=== PATIENT | male | born 1975 | race American Indian/Alaskan Native ===

== ENCOUNTER 2017-09-21 13:35 | Emergency (ER) | payer SELFPAY ==
[2017-09-21] MEDS ORDERED: NACL 0.9% 1000 ML 1,000 ML IV ONE (15:00)
[2017-09-21] MEDS ORDERED: ZOFRAN IV ONE (15:00)
--- NOTE | 2017-09-21 15:01 | Emergency Department Report ---
ED Abdominal Pain HPI - General Chief Complaint: Abdominal Pain Stated Complaint: NAUSEA/VOMITING Time Seen by Provider: 09/21/17 14:40 Source: patient, EMS Mode of arrival: Stretcher Limitations: No Limitations - History of Present Illness Initial Comments: Patient is a 42-year-old male presents to emergency room with complaints of nausea and vomiting and abdominal pain 10 hours. Patient states the abdominal pain and nausea vomiting started early this morning after having a drink a bottle of wine. Patient states that he doesn't drink that often. Patient states the pain is bilateral lower quadrant and epigastric. MD Complaint: abdominal pain -: Sudden Location: LLQ, RLQ Radiation: none Migration to: no migration Severity scale (0 -10): 8 Quality: stabbing Consistency: constant Improves With: rest Worsens With: eating, vomiting Context: other (recent alcohol use) Associated Symptoms: nausea, vomiting. denies: diarrhea, fever, chills, constipation, dysuria, hematemesis, hematochezia, melena, hematuria, syncope - Related Data Home Medications Medication Instructions Recorded Confirmed Last Taken Hydrochlorothiazide [HCTZ] 25 mg PO QDAY 02/25/15 02/25/15 02/25/15 Insulin NPH, Human [NovoLIN N] 15 unit SUB-Q BID 02/25/15 02/25/15 02/25/15 Allergies Allergy/AdvReac Type Severity Reaction Status Date / Time No Known Allergies Allergy Unverified 02/25/15 18:45 ED Review of Systems ROS: Stated complaint: NAUSEA/VOMITING Other details as noted in HPI Constitutional: denies: chills, fever Eyes: denies: eye pain, eye discharge, vision change ENT: denies: ear pain, throat pain Respiratory: denies: cough, shortness of breath, wheezing Cardiovascular: denies: chest pain, palpitations Endocrine: no symptoms reported Gastrointestinal: abdominal pain, nausea, vomiting. denies: diarrhea Genitourinary: denies: urgency, dysuria Musculoskeletal: denies: back pain, joint swelling, arthralgia Skin: denies: rash, lesions Neurological: denies: headache, weakness, paresthesias Psychiatric: denies: anxiety, depression Hematological/Lymphatic: denies: easy bleeding, easy bruising ED Past Medical Hx - Past Medical History Previous Medical History?: Yes Hx Hypertension: Yes Hx Diabetes: Yes Hx Asthma: Yes - Surgical History Past Surgical History?: No - Family History Family history: hypertension - Social History Smoking Status: Current Some Day Smoker Substance Use Type: Alcohol - Medications Home Medications: Home Medications Medication Instructions Recorded Confirmed Last Taken Type Hydrochlorothiazide [HCTZ] 25 mg PO QDAY 02/25/15 02/25/15 02/25/15 History Insulin NPH, Human [NovoLIN N] 15 unit SUB-Q BID 02/25/15 02/25/15 02/25/15 History ED Physical Exam - General Limitations: No Limitations General appearance: alert, in no apparent distress - Head Head exam: Present: atraumatic, normocephalic - Eye Eye exam: Present: normal appearance - ENT ENT exam: Present: mucous membranes moist - Neck Neck exam: Present: normal inspection - Respiratory Respiratory exam: Present: normal lung sounds bilaterally. Absent: respiratory distress - Cardiovascular Cardiovascular Exam: Present: regular rate, normal rhythm. Absent: systolic murmur, diastolic murmur, rubs, gallop - GI/Abdominal GI/Abdominal exam: Present: soft, tenderness (bilateral lower quadrant tenderness to palpation), normal bowel sounds - Rectal Rectal exam: Present: deferred - Extremities Exam Extremities exam: Present: normal inspection - Back Exam Back exam: Present: normal inspection - Neurological Exam Neurological exam: Present: alert, oriented X3 - Psychiatric Psychiatric exam: Present: normal affect, normal mood - Skin Skin exam: Present: warm, dry, intact, normal color. Absent: rash ED Course Vital Signs 09/21/17 09/21/17 09/21/17 13:49 14:00 14:05 Temperature 98.1 F Pulse Rate 70 58 L Respiratory 11 L 20 Rate Blood Pressure 152/87 143/91 Blood Pressure [Left] O2 Sat by Pulse 100 100 99 Oximetry 09/21/17 09/21/17 09/21/17 14:12 14:16 14:30 Temperature 98.1 F Pulse Rate 58 L 86 57 L Respiratory 20 14 11 L Rate Blood Pressure 153/88 157/85 Blood Pressure 143/91 [Left] O2 Sat by Pulse 99 98 97 Oximetry 09/21/17 09/21/17 09/21/17 14:45 15:00 15:16 Temperature Pulse Rate 97 H 90 68 Respiratory 12 12 19 Rate Blood Pressure 153/88 153/88 153/88 Blood Pressure [Left] O2 Sat by Pulse 98 97 97 Oximetry 09/21/17 09/21/17 09/21/17 15:20 15:30 15:46 Temperature Pulse Rate 70 105 H Respiratory 22 18 16 Rate Blood Pressure 153/88 153/88 Blood Pressure [Left] O2 Sat by Pulse 98 99 Oximetry 09/21/17 09/21/17 09/21/17 16:00 16:16 16:30 Temperature Pulse Rate 85 89 Respiratory 22 14 Rate Blood Pressure 153/88 153/88 153/88 Blood Pressure [Left] O2 Sat by Pulse 98 98 97 Oximetry 09/21/17 09/21/17 09/21/17 16:46 17:00 17:15 Temperature Pulse Rate 106 H Respiratory 12 Rate Blood Pressure 153/88 153/88 153/88 Blood Pressure [Left] O2 Sat by Pulse 98 98 Oximetry 09/21/17 17:31 Temperature Pulse Rate Respiratory 20 Rate Blood Pressure Blood Pressure [Left] O2 Sat by Pulse 100 Oximetry - Reevaluation(s) Reevaluation #1: Patient states she is pain free at this time and symptom free. Patient states he wants to sign out AMA. Discussed risks with patient. Patient voiced understanding of risks of leaving AGAINST MEDICAL ADVICE. AMA sign. Case discussed with patient's nurse due to having been given Dilaudid. Patient refused CT. Patient states he does not want any more medical care wants to leave AMA. Patient A& O 4 09/21/17 16:47 ED Medical Decision Making - Lab Data Result diagrams: 09/21/17 15:35 09/21/17 15:35 - Radiology Data Review CT scan - Medical Decision Making She is a 42-year-old male presents to the emergency room with complaints of intractable nausea and vomiting and abdominal pain. Patient refused workup and a CT scan. Patient signed out AMA - Differential Diagnosis intractable nausea and vomiting. Gastritis. Abd pain. Dehydration Critical care attestation.: If time is entered above; I have spent that time in minutes in the direct care of this critically ill patient, excluding procedure time. ED Disposition Clinical Impression: Nausea & vomiting, Abdominal pain, Gastritis Disposition: LEFT AGAINST MED ADVICE Is pt being admited?: No Does the pt Need Aspirin: No Forms: AMA Form Time of Disposition: 16:55
[2017-09-21] MEDS ORDERED: DILAUDID ONE (15:02)
[2017-09-21] MEDS ORDERED: DILAUDID IV ONE (15:04)
[2017-09-21 15:58] LABS: Basophils % (Auto) 0.4 % (0.0-1.8); Hematocrit 46.7 % (35.5-45.6); Hemoglobin 14.9 gm/dl (11.8-15.2); Lymphocytes # (Auto) 0.9 K/mm3 (1.2-5.4); Mean Corpuscular HGB Conc 32 % (32-34); Mean Corpuscular Hemoglobin 30 pg (28-32); Mean Corpuscular Volume 92 fl (84-94); Monocytes # (Auto) 0.5 K/mm3 (0.0-0.8); Monocytes % (Auto) 4.2 % (0.0-7.3); Platelet Count 196 K/mm3 (140-440); Red Blood Count 5.07 M/mm3 (3.65-5.03)
[2017-09-21 16:14] LABS: Alanine Aminotransferase 28 units/L (7-56); BUN/Creatinine Ratio 20; Blood Urea Nitrogen 14 mg/dL (9-20); Calcium 8.8 mg/dL (8.4-10.2); Hemolysis Index 19
[2017-09-21 17:31] VITALS: BP 153/88
== END 2017-09-21 17:36 | disposition left against medical advice (07) ==
LOC: ED 13:35
DX: K29.70 Gastritis, unspecified, without bleeding (principal); F17.200 Nicotine dependence, unspecified, uncomplicated; I10 Essential (primary) hypertension; E11.9 Type 2 diabetes mellitus without complications; J45.909 Unspecified asthma, uncomplicated; Z79.899 Other long term (current) drug therapy
CPT/HCPCS: 36415; 80053; 82962; 85025; 96374; 96375; 99284; J1170; J2405

== ENCOUNTER 2017-09-22 06:04 | Emergency (ER) | payer OTHER ==
[2017-09-22] MEDS ORDERED: NACL 0.9% 1000 ML 1,000 ML IV ONE ×4 (06:33→13:00)
[2017-09-22 07:17] LABS: Basophils # (Auto) 0.1 K/mm3 (0.0-0.1); Basophils % (Auto) 0.5 % (0.0-1.8); Eosinophils % (Auto) 0.1 % (0.0-4.3); Hematocrit 50.5 % (35.5-45.6); Hemoglobin 16.4 gm/dl (11.8-15.2); Lymphocytes # (Auto) 1.3 K/mm3 (1.2-5.4); Lymphocytes % (Auto) 10.9 % (13.4-35.0); Mean Corpuscular HGB Conc 33 % (32-34); Mean Corpuscular Hemoglobin 30 pg (28-32); Mean Corpuscular Volume 92 fl (84-94); Monocytes # (Auto) 0.8 K/mm3 (0.0-0.8); Monocytes % (Auto) 6.3 % (0.0-7.3); Platelet Count 217 K/mm3 (140-440); Red Blood Count 5.52 M/mm3 (3.65-5.03); Red Cell Distribution Width 13.2 % (13.2-15.2)
[2017-09-22 07:19] LABS: Alanine Aminotransferase 28 units/L (7-56); Albumin 4.4 g/dL (3.9-5); BUN/Creatinine Ratio 21; Blood Urea Nitrogen 17 mg/dL (9-20); Calcium 9.4 mg/dL (8.4-10.2); Hemolysis Index 12; Lipase 7 units/L (13-60)
[2017-09-22 07:27] LABS: INR 1.1 (0.87-1.13)
[2017-09-22 07:28] LABS: Partial Thromboplastin Time 27.3 Sec. (24.2-36.6)
[2017-09-22] MEDS ORDERED: ZOFRAN IV ONE ×2 (10:25→14:07)
[2017-09-22] MEDS ORDERED: PEPCID IV ONE ×2 (10:25→10:38)
[2017-09-22] MEDS ORDERED: HumuLIN R IV ONE (10:25)
[2017-09-22] MEDS ORDERED: REGLAN IV ONE (10:25)
[2017-09-22] MEDS ORDERED: BENADRYL IV ONE (10:25)
--- NOTE | 2017-09-22 10:29 | Emergency Department Report ---
ED Abdominal Pain HPI - General Chief Complaint: GI Bleed Stated Complaint: NAUSEA AND VOMITTING Time Seen by Provider: 09/22/17 10:18 Source: patient, family Mode of arrival: Ambulatory Limitations: No Limitations - History of Present Illness Initial Comments: 42-year-old male with a past medical history asthma, insulin-dependent diabetes , and hypertension this is a hospital of persistent nausea, vomiting, abdominal pain and diarrhea since yesterday. Symptoms apparently started after drinking alcohol patient does not drink alcohol often. He has had epigastric discomfort and lower abdominal discomfort that is mild to moderate in intensity and vomiting and by mouth intolerance. After several episodes of vomiting this became blood-streaked. Positive diarrhea without melena or hematochezia. No reports of fever previous abdominal surgeries. Patient was seen here yesterday and refused CT at that time and signed out AMA. No medications were prescribed. - Related Data Home Medications Medication Instructions Recorded Confirmed Last Taken Hydrochlorothiazide [HCTZ] 25 mg PO QDAY 02/25/15 02/25/15 02/25/15 Insulin NPH, Human [NovoLIN N] 15 unit SUB-Q BID 02/25/15 02/25/15 02/25/15 Allergies Allergy/AdvReac Type Severity Reaction Status Date / Time No Known Allergies Allergy Unverified 02/25/15 18:45 ED Review of Systems ROS: Stated complaint: NAUSEA AND VOMITTING Other details as noted in HPI Comment: All other systems reviewed and negative ED Past Medical Hx - Past Medical History Previous Medical History?: Yes Hx Hypertension: Yes Hx Diabetes: Yes Hx Asthma: Yes - Surgical History Past Surgical History?: No - Social History Smoking Status: Current Every Day Smoker Substance Use Type: Alcohol - Medications Home Medications: Home Medications Medication Instructions Recorded Confirmed Last Taken Type Hydrochlorothiazide [HCTZ] 25 mg PO QDAY 02/25/15 02/25/15 02/25/15 History Insulin NPH, Human [NovoLIN N] 15 unit SUB-Q BID 02/25/15 02/25/15 02/25/15 History ED Physical Exam - General Limitations: No Limitations - Other Other exam information: General: No limitations, patient is alert in no acute distress Head exam: Atraumatic, normocephalic Eyes exam: Normal appearance, pupils equal reactive to light, extraocular movements intact ENT: Moist mucous membrane Neck exam: Normal inspection, full range of motion, no meningismus nontender Respiratory exam: Clear to auscultation bilateral, no wheezes, rales, crackles Cardiovascular: Normal rate and rhythm, normal heart sounds Abdomen: Soft, nondistended, moderate epigastric tenderness and lower abdominal tenderness, with normal bowel sounds, no rebound, or guarding. Active vomiting Extremity: Full range of motion normal inspection no deformity Back: Normal Inspection, full range of motion, no tenderness Neurologic: Alert, oriented x3, cranial nerves intact, no motor or sensory deficit Psychiatric: normal affect, normal mood Skin: Warm, dry, intact ED Course Vital Signs 09/22/17 09/22/17 06:24 13:06 Temperature 98.3 F Pulse Rate 100 H 95 H Respiratory 16 Rate Blood Pressure 146/88 Blood Pressure 131/72 [Right] O2 Sat by Pulse 99 99 Oximetry ED Medical Decision Making - Lab Data Result diagrams: 09/22/17 06:38 09/22/17 06:38 Lab Results 09/22/17 09/22/17 09/22/17 Range/Units 06:38 06:38 06:38 WBC 12.3 H (4.5-11.0) K/mm3 RBC 5.52 H (3.65-5.03) M/mm3 Hgb 16.4 H (11.8-15.2) gm/dl Hct 50.5 H (35.5-45.6) % MCV 92 (84-94) fl MCH 30 (28-32) pg MCHC 33 (32-34) % RDW 13.2 (13.2-15.2) % Plt Count 217 (140-440) K/mm3 Lymph % (Auto) 10.9 L (13.4-35.0) % [place] % (Auto) 6.3 (0.0-7.3) % Eos % (Auto) 0.1 (0.0-4.3) % Baso % (Auto) 0.5 (0.0-1.8) % Lymph # 1.3 (1.2-5.4) K/mm3 [place] # 0.8 (0.0-0.8) K/mm3 Eos # 0.0 (0.0-0.4) K/mm3 Baso # 0.1 (0.0-0.1) K/mm3 Seg Neutrophils % 82.2 H (40.0-70.0) % Seg Neutrophils # 10.1 H (1.8-7.7) K/mm3 PT 14.8 (12.2-14.9) Sec. INR 1.10 (0.87-1.13) APTT 27.3 (24.2-36.6) Sec. Sodium 144 (137-145) mmol/L Potassium 4.0 (3.6-5.0) mmol/L Chloride 98.0 (98-107) mmol/L Carbon Dioxide 23 (22-30) mmol/L Anion Gap 27 mmol/L BUN 17 (9-20) mg/dL Creatinine 0.8 (0.8-1.5) mg/dL Estimated GFR > 60 ml/min BUN/Creatinine Ratio 21 % Glucose 379 H (75-100) mg/dL POC Glucose (70-105) Calcium 9.4 (8.4-10.2) mg/dL Total Bilirubin 0.70 (0.1-1.2) mg/dL AST 22 (5-40) units/L ALT 28 (7-56) units/L Alkaline Phosphatase 142 H (35-129) units/L Total Creatine Kinase (55-170) units/L CK-MB (CK-2) (0.0-4.0) ng/mL CK-MB (CK-2) Rel Index (0-4) Troponin T (0.00-0.029) ng/mL Total Protein 7.5 (6.3-8.2) g/dL Albumin 4.4 (3.9-5) g/dL Albumin/Globulin Ratio 1.4 % Lipase 7 L (13-60) units/L Urine Color (Yellow) Urine Turbidity (Clear) Urine pH (5.0-7.0) Ur Specific [place] (1.003-1.030) Urine Protein (Negative) mg/dL Urine Glucose (UA) (Negative) mg/dL Urine Ketones (Negative) mg/dL Urine Blood (Negative) Urine Nitrite (Negative) Urine Bilirubin (Negative) Urine Urobilinogen (<2.0) mg/dL Ur Leukocyte Esterase (Negative) Urine WBC (Auto) (0.0-6.0) /HPF Urine RBC (Auto) (0.0-6.0) /HPF U Epithel Cells (Auto) (0-13.0) /HPF Urine Mucus /HPF Blood Type Antibody Screen 09/22/17 09/22/17 09/22/17 Range/Units 06:38 07:32 12:10 WBC (4.5-11.0) K/mm3 RBC (3.65-5.03) M/mm3 Hgb (11.8-15.2) gm/dl Hct (35.5-45.6) % MCV (84-94) fl MCH (28-32) pg MCHC (32-34) % RDW (13.2-15.2) % Plt Count (140-440) K/mm3 Lymph % (Auto) (13.4-35.0) % [place] % (Auto) (0.0-7.3) % Eos % (Auto) (0.0-4.3) % Baso % (Auto) (0.0-1.8) % Lymph # (1.2-5.4) K/mm3 [place] # (0.0-0.8) K/mm3 Eos # (0.0-0.4) K/mm3 Baso # (0.0-0.1) K/mm3 Seg Neutrophils % (40.0-70.0) % Seg Neutrophils # (1.8-7.7) K/mm3 PT (12.2-14.9) Sec. INR (0.87-1.13) APTT (24.2-36.6) Sec. Sodium (137-145) mmol/L Potassium (3.6-5.0) mmol/L Chloride (98-107) mmol/L Carbon Dioxide (22-30) mmol/L Anion Gap mmol/L BUN (9-20) mg/dL Creatinine (0.8-1.5) mg/dL Estimated GFR ml/min BUN/Creatinine Ratio % Glucose (75-100) mg/dL POC Glucose (70-105) Calcium (8.4-10.2) mg/dL Total Bilirubin (0.1-1.2) mg/dL AST (5-40) units/L ALT (7-56) units/L Alkaline Phosphatase (35-129) units/L Total Creatine Kinase 786 H (55-170) units/L CK-MB (CK-2) 2.9 (0.0-4.0) ng/mL CK-MB (CK-2) Rel Index 0.3 (0-4) Troponin T < 0.010 (0.00-0.029) ng/mL Total Protein (6.3-8.2) g/dL Albumin (3.9-5) g/dL Albumin/Globulin Ratio % Lipase (13-60) units/L Urine Color Straw (Yellow) Urine Turbidity Clear (Clear) Urine pH 5.0 (5.0-7.0) Ur Specific [place] 1.052 H (1.003-1.030) Urine Protein 100 mg/dl (Negative) mg/dL Urine Glucose (UA) >=500 (Negative) mg/dL Urine Ketones 80 (Negative) mg/dL Urine Blood Mod (Negative) Urine Nitrite Neg (Negative) Urine Bilirubin Neg (Negative) Urine Urobilinogen < 2.0 (<2.0) mg/dL Ur Leukocyte Esterase Neg (Negative) Urine WBC (Auto) 1.0 (0.0-6.0) /HPF Urine RBC (Auto) 4.0 (0.0-6.0) /HPF U Epithel Cells (Auto) < 1.0 (0-13.0) /HPF Urine Mucus Few /HPF Blood Type O POSITIVE Antibody Screen Negative 09/22/17 Range/Units 13:03 WBC (4.5-11.0) K/mm3 RBC (3.65-5.03) M/mm3 Hgb (11.8-15.2) gm/dl Hct (35.5-45.6) % MCV (84-94) fl MCH (28-32) pg MCHC (32-34) % RDW (13.2-15.2) % Plt Count (140-440) K/mm3 Lymph % (Auto) (13.4-35.0) % [place] % (Auto) (0.0-7.3) % Eos % (Auto) (0.0-4.3) % Baso % (Auto) (0.0-1.8) % Lymph # (1.2-5.4) K/mm3 [place] # (0.0-0.8) K/mm3 Eos # (0.0-0.4) K/mm3 Baso # (0.0-0.1) K/mm3 Seg Neutrophils % (40.0-70.0) % Seg Neutrophils # (1.8-7.7) K/mm3 PT (12.2-14.9) Sec. INR (0.87-1.13) APTT (24.2-36.6) Sec. Sodium (137-145) mmol/L Potassium (3.6-5.0) mmol/L Chloride (98-107) mmol/L Carbon Dioxide (22-30) mmol/L Anion Gap mmol/L BUN (9-20) mg/dL Creatinine (0.8-1.5) mg/dL Estimated GFR ml/min BUN/Creatinine Ratio % Glucose (75-100) mg/dL POC Glucose 317 H (70-105) Calcium (8.4-10.2) mg/dL Total Bilirubin (0.1-1.2) mg/dL AST (5-40) units/L ALT (7-56) units/L Alkaline Phosphatase (35-129) units/L Total Creatine Kinase (55-170) units/L CK-MB (CK-2) (0.0-4.0) ng/mL CK-MB (CK-2) Rel Index (0-4) Troponin T (0.00-0.029) ng/mL Total Protein (6.3-8.2) g/dL Albumin (3.9-5) g/dL Albumin/Globulin Ratio % Lipase (13-60) units/L Urine Color (Yellow) Urine Turbidity (Clear) Urine pH (5.0-7.0) Ur Specific Bureau (1.003-1.030) Urine Protein (Negative) mg/dL Urine Glucose (UA) (Negative) mg/dL Urine Ketones (Negative) mg/dL Urine Blood (Negative) Urine Nitrite (Negative) Urine Bilirubin (Negative) Urine Urobilinogen (<2.0) mg/dL Ur Leukocyte Esterase (Negative) Urine WBC (Auto) (0.0-6.0) /HPF Urine RBC (Auto) (0.0-6.0) /HPF U Epithel Cells (Auto) (0-13.0) /HPF Urine Mucus /HPF Blood Type Antibody Screen - Radiology Data Radiology results: report reviewed ct a/p IV contrast IMPRESSION:1. Nonspecific gastric wall thickening with no mass or ulcer identified. Peptic ulcer disease is a possibility. 2. Nonspecific wall thickening of the distal descending and proximal sigmoid colon. This suggests mild colitis. - Medical Decision Making Other differential pancreatitis Despite ED treatment patient continues to have nausea and vomiting. Pain is minimum. CT results reviewed. Treated with Zofran, Reglan, Benadryl, Pepcid and 3 L of normal saline - Differential Diagnosis gastroenteritis, gastroparesis, gastritis, appendicitis, diverticulitis Critical Care Time: No Critical care attestation.: If time is entered above; I have spent that time in minutes in the direct care of this critically ill patient, excluding procedure time. ED Disposition Clinical Impression: Abdominal pain, Gastritis, Nausea & vomiting, Insulin dependent diabetes mellitus, Hyperglycemia, Dehydration Disposition: DC-09 OP ADMIT IP TO THIS HOSP Is pt being admited?: Yes Condition: Stable Time of Disposition: 14:08 (Dr Vazquez/hosp)
[2017-09-22] MEDS ORDERED: REGLAN ONE (10:37)
[2017-09-22] MEDS ORDERED: ZOFRAN ONE ×2 (10:37→14:21)
[2017-09-22] MEDS ORDERED: BENADRYL ONE (10:37)
[2017-09-22] MEDS ORDERED: NACL 0.9% 1000 ML 1,000 ML ONE ×3 (10:38→13:55)
[2017-09-22] MEDS ORDERED: HumuLIN R ONE (11:08)
--- NOTE | 2017-09-22 11:40 | Cat Scan Report ---
CT ABDOMEN AND PELVIS WITH CONTRAST: 09/22/17 06:04:00 CLINICAL: Abdominal pain. Nausea and vomiting. COMPARISON: None. TECHNIQUE: Volumetric acquisition and 1.25 millimeter scan reconstructions after the uneventful intravenous injection of 100 cc Omnipaque 300. Consent was obtained prior to the administration of contrast. Oral contrast was not given. FINDINGS: Abdomen: Lung bases are clear.Focal fat in medial segment of the left lobe of the liver at the intersegmental fissure. The liver is otherwise normal. Normal gallbladder and bile ducts. Moderate wall thickening of the gastric fundus and gastric body and lesser wall thickening of the gastric antrum. No ulcer or mass identified. Mild thickening of duodenal folds in the second portion of the duodenum. Normal pancreas and spleen. The adrenal glands and kidneys are normal. The renal collecting systems and ureters are nondilated. Normal aorta and inferior vena cava. Small bowel is normal. Normal ascending transverse and proximal descending colon. Nonspecific wall thickening of the distal descending and proximal sigmoid colon. No diverticula are identified. The appendix is normal. No mass, lymphadenopathy or ascites.No pneumoperitoneum. Pelvis: Normal urinary bladder, prostate and seminal vesicles. Normal rectum. Mild nonspecific wall thickening of the proximal sigmoid colon but otherwise normal sigmoid colon. Bone windows demonstrate no bone lesion. IMPRESSION:1. Nonspecific gastric wall thickening with no mass or ulcer identified. Peptic ulcer disease is a possibility. 2. Nonspecific wall thickening of the distal descending and proximal sigmoid colon. This suggests mild colitis.
[2017-09-22 12:38] LABS: Creatine Kinase MB 2.9 ng/mL (0.0-4.0)
[2017-09-22 12:50] LABS: Bilirubin,Urine NEG (Negative); Blood,Urine MOD (Negative); Color,Urine Straw (Yellow); Mucus,Urine FEW /HPF; Urobilinogen,Urine < 2.0 mg/dL (<2.0)
[2017-09-22] MEDS ORDERED: LEVAQUIN 750MG/150ML 750 MG/150 ML BAG IV ONE ×2 (14:39→15:01)
--- NOTE | 2017-09-22 14:45 | History and Physical Report ---
History of Present Illness Chief complaint: my stomach hurts History of present illness: 42 YO Male with HTN, DM, Nicotine Dependence presents to ED for evaluation. Pt seen and evaluated in ED and underwent CT abdomen pelvis which showed evidence of PUD. Pt treated with IV antibiotic therapy, as well as ppi therapy. Pt medically optimized and back to usual state of health. Pt discharged home and instructed to f/u pcp 1wk, and f/u GI 1 wk for further testing and evaluation. Past History Past Medical History: diabetes, hypertension Past Surgical History: No surgical history, Other (reviewed) Social history: smoking Family history: hypertension Medications and Allergies Allergies Allergy/AdvReac Type Severity Reaction Status Date / Time No Known Allergies Allergy Unverified 02/25/15 18:45 Home Medications Medication Instructions Recorded Confirmed Last Taken Type Hydrochlorothiazide [HCTZ] 25 mg PO QDAY 02/25/15 02/25/15 02/25/15 History Insulin NPH, Human [NovoLIN N] 15 unit SUB-Q BID 02/25/15 02/25/15 02/25/15 History Lansoprazole/Amoxiciln/Clarith 1 each PO BID #28 combo..pkg 09/22/17 [facility] Active Meds: Active Medications Metronidazole (Flagyl 500 Mg/100 Ml) 500 mg in 100 mls @ 200 mls/hr IV ONCE KRISTIN Levofloxacin/Dextrose (Levaquin 750mg/150ml) 750 mg in 150 mls @ 100 mls/hr IV ONCE ONE Stop: 09/22/17 16:08 Review of Systems Constitutional: no weight loss, no weight gain, no fever, no chills Ears, nose, mouth and throat: no ear pain, no ear discharge, no tinnitis, no decreased hearing, no nose pain, no nasal congestion Cardiovascular: no chest pain, no orthopnea, no palpitations, no rapid/ irregular heart beat, no edema, no syncope Respiratory: no cough, no cough with sputum, no excessive sputum, no hemoptysis , no shortness of breath Gastrointestinal: abdominal pain, heartburn, indigestion, belching, no constipation, no change in bowel habits, no hematemesis, no melena, no hematochezia Genitourinary Male: no dysuria, no hematuria, no flank pain, no discharge Rectal: no pain, no incontinence, no bleeding Musculoskeletal: no neck stiffness, no neck pain, no shooting arm pain, no arm numbness/tingling, no low back pain, no shooting leg pain, no leg numbness/ tingling Integumentary: no rash, no pruritis, no redness, no sores, no wounds, no jaundice Neurological: no head injury, no transient paralysis, no paralysis, no weakness , no parathesias, no numbness, no tingling Psychiatric: no anxiety, no memory loss, no change in sleep habits, no sleep disturbances, no insomnia, no hypersomnia, no change in appetite Endocrine: no cold intolerance, no heat intolerance, no polyphagia, no excessive thirst, no polydipsia, no polyuria, no nocturia, no excessive sweating Hematologic/Lymphatic: no easy bruising, no easy bleeding, no lymphadenopathy, no lymphedema Allergic/Immunologic: no urticaria, no allergic rhinitis, no wheezing, no persistent infections, no anaphylaxis, no angioedema Exam - Constitutional Vitals: Temp Pulse Resp BP Pulse Ox 98.3 F 95 H 16 131/72 99 09/22/17 06:24 09/22/17 13:06 09/22/17 13:06 09/22/17 13:06 09/22/17 13:06 General appearance: Present: no acute distress, well-nourished - EENT Eyes: Present: PERRL ENT: hearing intact, clear oral mucosa - Neck Neck: Present: supple, normal ROM - Respiratory Respiratory effort: normal Respiratory: bilateral: CTA - Cardiovascular Heart Sounds: Present: S1 & S2. Absent: rub, click - Extremities Extremities: pulses symmetrical, No edema Peripheral Pulses: within normal limits - Abdominal General gastrointestinal: Present: soft, non-tender, non-distended, normal bowel sounds Male genitourinary: Present: normal - Integumentary Integumentary: Present: clear, warm, dry - Musculoskeletal Musculoskeletal: gait normal, strength equal bilaterally - Psychiatric Psychiatric: appropriate mood/affect, intact judgment & insight - Neurologic Neurologic: CNII-XII intact, moves all extremities Results - Labs CBC & Chem 7: 09/22/17 06:38 09/22/17 06:38 Labs: Abnormal lab results 09/22/17 09/22/17 09/22/17 Range/Units 06:38 06:38 06:38 WBC 12.3 H (4.5-11.0) K/mm3 RBC 5.52 H (3.65-5.03) M/mm3 Hgb 16.4 H (11.8-15.2) gm/dl Hct 50.5 H (35.5-45.6) % Lymph % (Auto) 10.9 L (13.4-35.0) % Seg Neutrophils % 82.2 H (40.0-70.0) % Seg Neutrophils # 10.1 H (1.8-7.7) K/mm3 Glucose 379 H (75-100) mg/dL POC Glucose (70-105) Alkaline Phosphatase 142 H (35-129) units/L Total Creatine Kinase 786 H (55-170) units/L Lipase 7 L (13-60) units/L Ur Specific [place] (1.003-1.030) 09/22/17 09/22/17 Range/Units 12:10 13:03 WBC (4.5-11.0) K/mm3 RBC (3.65-5.03) M/mm3 Hgb (11.8-15.2) gm/dl Hct (35.5-45.6) % Lymph % (Auto) (13.4-35.0) % Seg Neutrophils % (40.0-70.0) % Seg Neutrophils # (1.8-7.7) K/mm3 Glucose (75-100) mg/dL POC Glucose 317 H (70-105) Alkaline Phosphatase (35-129) units/L Total Creatine Kinase (55-170) units/L Lipase (13-60) units/L Ur Specific [place] 1.052 H (1.003-1.030) Assessment and Plan - Patient Problems (1) PUD (peptic ulcer disease) Current Visit: Yes Status: Acute Plan to address problem: PPI therapy, Prev Pack, (2) Abdominal pain Current Visit: Yes Status: Acute Qualifiers: Abdominal location: generalized Qualified Code(s): R10.84 - Generalized abdominal pain Plan to address problem: CT Abdomen/Pelvis, PPI therapy,
[2017-09-22] MEDS ORDERED: FLAGYL 500 MG/100 ML 500 MG/100 ML BAG IV SCH (15:00)
[2017-09-22 15:35] VITALS: BP 143/84
[2017-09-22] MEDS ORDERED: CARAFATE PO ONE (16:06)
[2017-09-22] MEDS ORDERED: CARAFATE ONE (16:10)
== END 2017-09-22 18:40 | disposition admitted as inpatient to this hospital (09) ==
LOC: ED 06:04
DX: K29.70 Gastritis, unspecified, without bleeding (principal); E86.0 Dehydration; K27.9 Peptic ulcer, site unspecified, unspecified as acute or chronic, without hemorrhage or perforation; E11.65 Type 2 diabetes mellitus with hyperglycemia; R11.2 Nausea with vomiting, unspecified; I10 Essential (primary) hypertension; J45.909 Unspecified asthma, uncomplicated; F17.200 Nicotine dependence, unspecified, uncomplicated; Z79.84 Long term (current) use of oral hypoglycemic drugs
CPT/HCPCS: 36415; 74177; 80053; 81001; 82550; 82553; 82962; 83690; 84484; 85025; 85610; 85730; 86850; 86900; 86901; 93005; 93010; 96361; 96365; 96367; 96375; 96376; 99285; J1200; J1956; J2405; J2765; J7030; Q9967; J1815

== ENCOUNTER 2017-09-24 19:27 | Emergency (ER) | payer SELFPAY ==
[2017-09-24] MEDS ORDERED: ZOFRAN ODT PO ONE (21:05)
[2017-09-24] MEDS ORDERED: ZOFRAN ODT ONE (21:05)
[2017-09-24 21:27] LABS: Basophils # (Auto) 0.1 K/mm3 (0.0-0.1); Basophils % (Auto) 1.3 % (0.0-1.8); Eosinophils % (Auto) 0.3 % (0.0-4.3); Hematocrit 53.5 % (35.5-45.6); Hemoglobin 17.6 gm/dl (11.8-15.2); Lymphocytes # (Auto) 1.7 K/mm3 (1.2-5.4); Lymphocytes % (Auto) 16.5 % (13.4-35.0); Mean Corpuscular HGB Conc 33 % (32-34); Mean Corpuscular Hemoglobin 30 pg (28-32); Mean Corpuscular Volume 92 fl (84-94); Monocytes # (Auto) 0.8 K/mm3 (0.0-0.8); Monocytes % (Auto) 7.9 % (0.0-7.3); Platelet Count 224 K/mm3 (140-440); Red Blood Count 5.82 M/mm3 (3.65-5.03); Red Cell Distribution Width 13.2 % (13.2-15.2)
[2017-09-24 21:33] LABS: Bilirubin,Urine NEG (Negative); Blood,Urine MOD (Negative); Color,Urine Yellow (Yellow); Urobilinogen,Urine < 2.0 mg/dL (<2.0)
[2017-09-24 21:59] LABS: Alanine Aminotransferase 23 units/L (7-56); Albumin 4.1 g/dL (3.9-5); BUN/Creatinine Ratio 21; Blood Urea Nitrogen 21 mg/dL (9-20); Calcium 9.5 mg/dL (8.4-10.2); Hemolysis Index 25; Lipase 8 units/L (13-60)
[2017-09-24 23:42] VITALS: BP 171/111
== END 2017-09-25 00:15 | disposition left against medical advice (07) ==
LOC: ED 19:27
DX: R10.9 Unspecified abdominal pain (principal); Z53.21 Procedure and treatment not carried out due to patient leaving prior to being seen by health care provider
CPT/HCPCS: 36415; 80053; 81001; 83690; 85025; Q0162